=== PATIENT | female | born 1995 | race African-American/Black ===

== ENCOUNTER 2018-05-27 21:08 | Observation (INO) | payer MEDICAID ==
[~2018-05-27] VITALS: Ht 160 cm; Wt 72.6 kg
[2018-05-27] MEDS ORDERED: PNV1TABL50 MT (22:40)
== END 2018-05-28 01:45 | disposition home or self-care (01) ==
LOC: 8EST NSY 21:08 → 8 EST LDRP 22:58
PROVIDERS: ADMIT Specialist; ATTEND Specialist
DX: O36.8120 Decreased fetal movements, second trimester, not applicable or unspecified (principal); O26.892 Other specified pregnancy related conditions, second trimester; M79.642 Pain in left hand; M79.641 Pain in right hand; Z3A.26 26 weeks gestation of pregnancy
CPT/HCPCS: 76815; 99281; G0378